=== PATIENT | female | born 1990 | race Caucasian/White ===

== ENCOUNTER 2017-09-07 18:04 | Emergency (ER) | payer OTHER, SELFPAY ==
--- NOTE | 2017-09-07 18:04 | EKG12_ITS ---
Test Reason : CP Blood Pressure : / mmHG Vent. Rate : 074 BPM Atrial Rate : 074 BPM P-R Int : 122 ms QRS Dur : 138 ms QT Int : 426 ms P-R-T Axes : 005 -26 062 degrees QTc Int : 472 ms Normal sinus rhythm Dpegx-Qhqftoncx-Hhiuo Abnormal ECG Confirmed by DOMINIK MARS, STORMY ([id number]), copy editor LORENZO PIERCE ([id number]) on 09/09/2017 10:35:52 AM Referred By: STAN Confirmed By:STORMY LEHMAN MD
[2017-09-07 18:05] VITALS: BP 154/92; PULSE 70; RESP 22; TEMP 37; O2SAT 98; BMI 50.3
--- NOTE | 2017-09-07 18:27 | EKG12_ITS ---
Test Reason : CP-REPEAT Blood Pressure : / mmHG Vent. Rate : 060 BPM Atrial Rate : 060 BPM P-R Int : 122 ms QRS Dur : 138 ms QT Int : 446 ms P-R-T Axes : 012 -27 039 degrees QTc Int : 446 ms Normal sinus rhythm Twwyi-Ytzwfsrbc-Koxfj Abnormal ECG Confirmed by DOMINIK MARS, STORMY ([id number]), art editor LORENZO PIERCE ([id number]) on 09/09/2017 10:11:59 AM Referred By: TC Confirmed By:STORMY LEHMAN MD
--- NOTE | 2017-09-07 18:27 | RAD_ITS ---
STUDY: X-RAY CHEST REASON FOR EXAM: Female, 26 years old. Chest pain. TECHNIQUE: Single AP portable view of the chest. COMPARISON: 01/09/2017. FINDINGS: The lungs are clear and expanded. There is no demonstrated pleural abnormality. Normal size heart. Normal mediastinum and olga. Normal visualized pulmonary arteries. Normal visualized aortic arch and descending thoracic aorta. Normal visualized thoracic spine. Normal visualized ribs, clavicles, and shoulders. There is no demonstrated abnormality of the visualized soft tissue structures of the upper abdomen. RAD/Chest 1 View (Portable) IMPRESSION: Normal x-ray examination of the chest. Electronically Signed: Yuriy Thoa MD at 18:54 EST , Service support ,
[2017-09-07 18:30] VITALS: O2SAT 98
[2017-09-07] MEDS: Aspirin 81 MG TAB.CHEW 324 MG PO (18:47)
[2017-09-07] MEDS: 0.9% Normal Saline 1,000 ML 150 ML IV (18:48)
[2017-09-07] MEDS: Ondansetron 4 MG/2 ML Vial IV (18:48)
[2017-09-07 19:04] LABS: Absolute Lymphocyte Count 3.04 X10^3/ul (0.83-4.51); Absolute Neutrophil Count 5.1 X10^3/uL (2.0-7.7); Basophil# 0.01 X10^3/uL; Basophil% 0.1 % (0-1); Eosinophil# 0.12 X10^3/uL; Eosinophils% 1.4 % (0-5); Hematocrit 42.2 % (37-47); Hemoglobin 13.9 g/dl (12.0-15.0); Lymphocyte # 3.04 X10^3/ul (4.0); Lymphocyte % 34.7 % (19-41); Mean Corp Hgb Conc 32.9 g/gl (32-36); Mean Corpuscular Hgb 27.9 pg (27.0-32.0); Mean Corpuscular Volume 84.7 fL (81-99); Mean Platelet Vol. 9.9 fl (6.2-12.0); Monocyte% 5.7 % (0-10); Neutrophil # 5.07 X10^3/uL (2.7-7.7); POSITIVE COUNT NO; POSITIVE DIFFERENTIAL NO; POSITIVE MORPHOLOGY NO; Platelet Count 258 K/mm3 (150-450); RBC Distribution Width CV 12.8 % (11.6-14.6); RBC Distribution Width SD 39.1 fl (35.1-43.9); Red Blood Count 4.98 M/mm3 (4.2-5.4); White Blood Count 8.8 K/mm3 (4.4-11.0)
[2017-09-07 19:14] LABS: D-Dimer Quantitative (DVT/PE) < 0.27 FEU/ug/m (0.27-0.49)
[2017-09-07 19:19] LABS: Anion Gap 8 (5-15); BUN 10 mg/dL (7-18); BUN/Creat Ratio 16.1 RATIO (10-20); Calcium,Total 8.7 mg/dL (8.5-10.1); Chloride 105 mmol/L (98-107); Creatinine, Serum 0.62 mg/dL (0.55-1.02); EST Glomerular Filtration Rate 121 mL/min (>60); Est Glom Filt Rate - Afr Amer 147 mL/min (>60); Estimated Creatinine Clearance 132.54 ml/min; Glucose 83 mg/dL (74-106); Potassium 3.4 mmol/L (3.5-5.1); Sodium Level 138 mmol/L (136-145)
[2017-09-07 19:27] LABS: Pregnancy, Serum, hCG Quali. NEGATIVE Negative (0-9 Nonpreg)
[2017-09-07 20:00] VITALS: BP 149/98; PULSE 67; RESP 18; O2SAT 98
--- NOTE | 2017-09-07 20:24 | ED.VISSUMM ---
- ER Visit Summary Date of Service: 09/07/17 Chief Complaint: Chest pain History of Present Illness: The patient is a 26 F history of Rxxfc-Qunqmhdlc-Hqvsw. She had cardiac ablation on April 01 of last year at [facility]. Patient presents with 3 hours of chest pain. She describes heaviness across her upper chest with shortness of breath. She does have strong family history for cardiac disease. Physical Examination: Vital signs are significant for blood pressure 154/92, others are all normal. Patient is obese female sitting upright in bed. She is troubled but in no acute distress. Head neck examination is unremarkable. Heart is regular rate and rhythm. Lung sounds are clear. She does have tenderness to palpation over the upper chest wall. Abdomen is soft and nontender. Lower exam examination reveals no significant calf tenderness or edema. She does appear anxious. Test Results: Chest x-ray is unremarkable. EKG is sinus at 74. 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 No acute ST changes are noted. Repeat EKG after approximate half hour is unchanged. CBC is normal. Chemistry studies are significant only for potassium of 3.4. Troponin is less than 0.02. D-dimer is less than 0.27. test is negative. Emergency Department Course and Treatment: Patient received aspirin on arrival. She also received morphine and Zofran. On repeat evaluation she is sitting upright in bed smiling. She is observed ambulating to the restroom and back without difficulty. Patient was discussed with Dr. Stoddard. Patient is already scheduled to follow-up with him next month. Treatment Plan: [] Disposition: Discharge Impression: Chest pain This note was generated with [employer] dictation software. It may contain incorrect words, spelling, and punctuation that were not noted in review of the chart prior to signing ED Disposition - Plan for ED Patient: Chief Complaint: Chest Pain Referrals: [facility] Doctor,Out of [Primary Care Provider] -
--- NOTE | 2017-09-07 20:28 | ED.DCSUM_ITS ---
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 She had cardiac ablation on April 01 of last year at [facility]. Patient presents with 3 hours of chest pain. She describes heaviness across her upper chest with shortness of breath. She does have strong family history for cardiac disease. Physical Examination: Vital signs are significant for blood pressure 154/92, others are all normal. Patient is obese female sitting upright in bed. She is troubled but in no acute distress. Head neck examination is unremarkable. Heart is regular rate and rhythm. Lung sounds are clear. She does have tenderness to palpation over the upper chest wall. Abdomen is soft and nontender. Lower exam examination reveals no significant calf tenderness or edema. She does appear anxious. Test Results: Chest x-ray is unremarkable. EKG is sinus at 74. 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 No acute ST changes are noted. Repeat EKG after approximate half hour is unchanged. CBC is normal. Chemistry studies are significant only for potassium of 3.4. Troponin is less than 0.02. D-dimer is less than 0.27. test is negative. Emergency Department Course and Treatment: Patient received aspirin on arrival. She also received morphine and Zofran. On repeat evaluation she is sitting upright in bed smiling. She is observed ambulating to the restroom and back without difficulty. Patient was discussed with Dr. Stoddard. Patient is already scheduled to follow-up with him next month. Treatment Plan: [] Disposition: Discharge Impression: Chest pain This note was generated with [employer] dictation software. It may contain incorrect words, spelling, and punctuation that were not noted in review of the chart prior to signing ED Disposition - Plan for ED Patient: Chief Complaint: Chest Pain Referrals: [facility] Doctor,Out of [Primary Care Provider] -
--- NOTE | 2017-09-07 20:28 | ED.DEP ---
ED Disposition - Plan for ED Patient: Disposition: Home or Assisted Living Chief Complaint: Chest Pain Instructions: ED Chest Pain NonCardiac Referrals: Lavell Stoddard MD [STAFF PHYSICIAN] - Keep [place] appointment
[2017-09-07 20:35] VITALS: BP 143/83; PULSE 60; RESP 17; O2SAT 97
== END 2017-09-07 20:36 | disposition home or self-care (01) ==
PROVIDERS: Emergency Provider Emergency Medicine
DX: R07.9 Chest pain, unspecified (principal); R06.00 Dyspnea, unspecified; R06.02 Shortness of breath; F32.9 Major depressive disorder, single episode, unspecified; E66.9 Obesity, unspecified; Z79.899 Other long term (current) drug therapy
CPT/HCPCS: 71045; 80048; 84484; 84703; 85025; 85379; 93005; 96361; 96374; 96375; 99285; J7030; J2405

== ENCOUNTER → 2018-06-29 11:55 | Outpatient (CLI) | payer BC, SELFPAY ==
[2018-06-29 14:18] LABS: Hematocrit 44.4 % (37-47); Hemoglobin 14.9 g/dl (12.0-15.0); Mean Corp Hgb Conc 33.6 g/gl (32-36); Mean Corpuscular Hgb 27.4 pg (27.0-32.0); Mean Corpuscular Volume 81.6 fL (81-99); Mean Platelet Vol. 10.4 fl (6.2-12.0); Platelet Count 266 K/mm3 (150-450); RBC Distribution Width CV 13.5 % (11.6-14.6); RBC Distribution Width SD 39.9 fl (35.1-43.9); Red Blood Count 5.44 M/mm3 (4.2-5.4); White Blood Count 6.3 K/mm3 (4.4-11.0)
[2018-06-29 14:22] LABS: Scan Indicated on CBC? Y/N NO
[2018-06-29 14:36] LABS: Insulin 36.5 mU/L (2.6-37.6); Progesterone Level 0.46 ng/mL (See Comment); Vitamin D,25 Hydroxy 12.6 ng/mL (29.95-100.01)
[2018-06-29 14:37] LABS: AST(SGOT) 18 U/L (15-37); Alanine Aminotransfer ALT/SGPT 28 U/L (13-56); Albumin, Serum 3.5 g/dL (3.2-5.0); Alkaline Phosphatase 88 U/L (45-117); Anion Gap 8 (5-15); BUN 17 mg/dL (7-18); Calcium,Total 8.7 mg/dL (8.5-10.1); Chloride 106 mmol/L (98-107); Creatinine, Serum 0.71 mg/dL (0.55-1.02); EST Glomerular Filtration Rate 104 mL/min (>60); Est Glom Filt Rate - Afr Amer 126 mL/min (>60); Estradiol 43.5 pg/mL; Follicle Stimulating Hormone 4.4 mIU/mL; Free T3 3.3 pg/mL (2.18-3.98); Globulin 3.6 g/dL (2.2-4.2); Glucose 132 mg/dL (74-106); Potassium 4.1 mmol/L (3.5-5.1); Protein, Total 7.1 g/dL (6.4-8.2); Sodium Level 138 mmol/L (136-145); T4 Free Direct 0.89 ng/dL (0.76-1.46); Thyroid Stim Hormone (TSH) 1.56 uIU/mL (0.358-3.74)
[2018-06-29 14:43] LABS: Hemoglobin A1c 6.2 % (4.2-6.3)
[2018-06-29 16:18] LABS: Chlamydia Trachomatis by PCR Negative (Negative); Neisserai gonorrhoeae by PCR Negative (Negative); Probe Check PASS; Sample Adequacy Control PASS; Specimen Processing Control PASS
[2018-06-30 11:06] LABS: DHEA Sulfate 288.7 ug/dL (84.8-378.0)
[2018-06-30 11:38] LABS: Sex Hormone-binding Globulin 14.4 nmol/L (24.6-122.0)
[2018-06-30 12:30] LABS: Prolactin 12.3 ng/mL
[2018-07-03 14:31] LABS: 17-Hydroxyprogesterone 66 ng/dL (.)
[2018-07-05 09:19] LABS: HPV APTIMA, High Risk Negative (Negative)
== END ==
PROVIDERS: Visit Provider Obstetrics & Gynecology
DX: Z01.419 Encounter for gynecological examination (general) (routine) without abnormal findings (principal); Z11.3 Encounter for screening for infections with a predominantly sexual mode of transmission; E28.2 Polycystic ovarian syndrome; R73.09 Other abnormal glucose; E55.9 Vitamin D deficiency, unspecified
CPT/HCPCS: 36415; 80053; 82306; 82533; 82627; 82670; 83001; 83002; 83036; 83498; 83525; 84144; 84146; 84270; 84403; 84439; 84443; 84481; 85027; 87491; 87591; 87624; 88175; 82626; G0145

== ENCOUNTER → 2018-07-11 14:35 | Outpatient (CLI) | payer BC, SELFPAY ==
--- NOTE | 2018-07-11 | CER_PTH ---
PATIENT: SYLVIA VELAZQUEZ LOC: [facility]#:[id number] AGE/SX: 34/F ROOM: RE07/11/[address]: Dr. Eva Garber MD : 1990 BED: DIS: SPEC #: [id number] RECD: 07/11/18 13:51 STATUS: SARANYA ONEALKristel #: [id number] VERITO: 07/11/18 00:[address]: Eva Anderson DEPT: SURGICAL PATHOLOGY RECD BY: Fernando Willett Tissues: A - Uterine cervix, NOS B - Endocervical Procedures: Surgery Specimen Level IV HEADER OPERATION: Colposcopy PRE-OP DIAGNOSIS: R87.610 LGSIL 2016, normal 2017, ASCUS 2018 TISSUE SUBMITTED: A - 11 o'clock, B - ECC MICROSCOPIC DIAGNOSIS A. Cervix, 11 o'clock, biopsy: Focal changes suspicious for HPV cytopathic effects. Focal acute and chronic inflammation. B. ECC: Fragments of benign endocervical mucosa with chronic inflammation, blood and mucous. Negative for dysplasia. See comment. JASON:silas 07/13/18 COMMENT B. A few of the fragments have polypoid appearance and may represent fragments of inflamed benign endocervical polyp. MICROSCOPIC DESCRIPTION Slides are reviewed. GROSS DESCRIPTION A - Received in fixative is one container labeled with the patient's name and designated 11 o'clock cervix biopsy. The specimen consists of one irregular fragment of light merrill soft tissue that measures 0.2 x 0.1 x 0.1 cm. The specimen is totally submitted in one cassette. B - Received in fixative is one container labeled with the patient's name and designated ECC. The specimen consists of multiple irregular fragments of light merrill soft tissue that in aggregate measure 1 x 0.5 x <0.1 cm. The specimen is totally submitted in one cassette for cell block preparation. / AM:silas 07/12/18 TC:5 CPT: 61872 x2
--- OUTSIDE RECORDS SUMMARY | 2018-10-13 02:39 | XMS RPT_ITS ---
:1990 Author Organization OHIP Care Team Providers Name Role Phone JERMAINE ESPINOZA Admitting Unavailable JERMAINE ESPINOZA Attending Unavailable XOCHITL VILLANUEVA III Primary Care Unavailable Eva Cisneros Attending Unavailable Eva Cisneros Referring Unavailable Lorri Ellison Attending Unavailable TRIP LANDEROS Primary Care Unavailable Eva Cisneros Attending Unavailable PROBLEMS PROBLEMS DATE TYPE CONDITION / CODE ATTENDING STATUS SOURCE 07/11/2018 Unknown R87.610 - Atypical Amelia, Active [facility] squamous cells of [facility] undetermined Hospital significance on Repository cytologic smear of cervix (ASC-US) / R87.610(ICD-10) 06/29/2018 Unknown E28.2 - Polycystic Amelia, Active [place] ovarian syndrome / [facility] E28.2(ICD-10) Hospital Repository 06/29/2018 Unknown Z68.43 - Body mass Delano-Jcarlos, Active [place] index (BMI) 50-59.9, [facility] adult / Hospital Z68.43(ICD-10) Repository 06/29/2018 Unknown E55.9 - Vitamin D Amelia Active [place] deficiency, [facility] unspecified / Hospital E55.9(ICD-10) Repository 06/29/2018 Unknown Z01.419 - Encounter Amelia Active [place] for gynecological [facility] examination (general) Hospital (routine) without Repository abnormal findings / Z01.419(ICD-10) 06/29/2018 Unknown Z11.3 - Encounter for Charity Cisneros [place] screening for [facility] infections with a Hospital predominantly sexual Repository mode of transmission / Z11.3(ICD-10) 09/15/2017 Admitting Supraventricular ALEXIS, JERMAINE G Active [facility] diagnosis tachycardia / [facility] I47.1(ICD-10) [facility] Repository PROCEDURES PROCEDURES No Procedure Records FoundRESULTS RESULTS CERVICAL Observed: 07/11/2018 Status: F Source: [place] 12:00 AM [facility] REPOSITORY Patient: SYLVIA VELAZQUEZ : 1990 (27/) Acct Num: [id number] Phys: Amelia MARS,[facility] Unit Num: [id number] Loc: LABSPEC Specimen: [id number] Received: 07/11/18 - 1351 Spec Type: CERV TISSUES 1 TISSUES: A. Uterine cervix, NOS B. Endocervical COMMENT B. A few of the fragments have polypoid appearance and may represent fragments of inflamed benign endocervical polyp. GROSS DESCRIPTION A - Received in fixative is one container labeled with the patient's name and designated 11 o'clock cervix biopsy. The specimen consists of one irregular fragment of light merrill soft tissue that measures 0.2 x 0.1 x 0.1 cm. The specimen is totally submitted in one cassette. B - Received in fixative is one container labeled with the patient's name and designated ECC. The specimen consists of multiple irregular fragments of light merrill soft tissue that in aggregate measure 1 x 0.5 x <0.1 cm. The specimen is totally submitted in one cassette for cell block preparation. / AM:silas 07/12 TC:5 CPT: 38629 x2 HEADER OPERATION: Colposcopy PRE-OP DIAGNOSIS: R87.610 LGSIL 2015, normal 2016, ASCUS 2017 TISSUE SUBMITTED: A - 11 o'clock, B - ECC MICROSCOPIC DESCRIPTION Slides are reviewed. MICROSCOPIC DIAGNOSIS A. Cervix, 11 o'clock, biopsy: Focal changes suspicious for HPV cytopathic effects. Focal acute and chronic inflammation. B. ECC: Fragments of benign endocervical mucosa with chronic inflammation, blood and mucous. Negative for dysplasia. See comment. SJ:silas 07/13/18 Signed Rickey Bishop MD 07/13/18 <signature on file> Performed By: #### PCER #### [facility] [address] [place], [place], [address] CBC-COMPLETE BLOOD CNT Collected: 06/29/2018 Status: F Source: [place] NO DIFF 11:59 AM [facility] REPOSITORY TYPE CODE TESTS RESULT OUT OF RANGE REFERENCE UNITS LAB L100.1000 4.4-11.0 K/mm3 Normal WBC 6.3 LAB L100.1200 4.2-5.4 M/mm3 High RBC 5.44 LAB L100.1300 12.0-15.0 g/dl Normal HGB 14.9 LAB L100.1400 37-47 % Normal HCT 44.4 LAB L100.1500 81-99 fL Normal MCV 81.6 LAB L100.1600 27.0-32.0 pg Normal MCH 27.4 LAB L100.1700 32-36 g/gl Normal MCHC 33.6 LAB L100.1810 11.6-14.6 % Normal RDW CV 13.5 LAB L100.1820 35.1-43.9 fl Normal RDW SD 39.9 LAB L100.1900 150-450 K/mm3 Normal PLT 266 LAB L100.2000 6.2-12.0 fl Normal MPV 10.4 Performed By: #### L100.0500 #### [facility] [address] [place], [place], [address] VITAMIN D,25 HYDROXY Collected: 06/29/2018 Status: F Source: [place] 11:59 AM [facility] REPOSITORY TYPE CODE TESTS RESULT OUT OF REFERENCE UNITS RANGE LAB L506.1000 29.95-100.01 ng/mL Low Vitamin D 12.6 25-OH Result Comment: Vitamin D 25(OH) Status Range Deficiency <20 ng/mL (50nmol/L) Insuffciency 20 - 30 ng/mL (50 - 75 nmol/L) Sufficiency 30 - 100 ng/mL (75 - 250 nmol/L) Toxicity >100 ng/mL (>250 nmol/L) Performed By: #### L506.1000, L509.3000, L509.4001, L509.6000, [id number] #### [facility] [address] [place], [address] TESTOSTERONE, SERUM TOTAL Collected: 06/29/2018 Status: F Source: [place] 11:59 AM [facility] REPOSITORY TYPE CODE TESTS RESULT OUT OF REFERENCE UNITS RANGE LAB L509.3000 ng/dL Testosterone Normal 34.00 Result Comment: NORMAL REFERENCE RANGES MALE AGE <50 123.06 - 813.86 ng/dL MALE AGE >50 89.98 - 780.10 ng/dL FEMALE PREMENOPAUSE AGE 21 - 60 9.01 - 47.94 ng/dL FEMALE POSTMENOPAUSE AGE 45 - 89 <7.00 - 45.62 ng/dL REFERENCE RANGE AND METHODOLOGY CHANGED 07/13/2017 Performed By: #### L506.1000, L509.3000, L509.4001, L509.6000, [id number] #### [facility] [address] [place], [place], [address] PROGESTERONE LEVEL Collected: 06/29/2018 Status: F Source: [place] 11:59 AM [facility] REPOSITORY TYPE CODE TESTS RESULT OUT OF REFERENCE UNITS RANGE LAB L509.4001 See Comment ng/mL Progesterone Normal 0.46 Result Comment: Progesterone Reference Table: UNITS Female: Follicular 0.15 - 1.40 ng/mL Luteal 3.34 - 25.56 ng/mL Mid-luteal 4.44 - 28.03 ng/mL Postmenopausal 0.0 - 0.73 ng/mL : 1st Trimester 11.22 - 90.00 ng/mL 2nd Trimester 25.55 - 89.40 ng/mL 3rd Trimester 48.40 -422.50 ng/mL Performed By: #### L506.1000, L509.3000, L509.4001, L509.6000, [id number] #### [facility] [address] [place], [address] CORTISOL SERUM Collected: 06/29/2018 Status: F Source: [place] 11:59 AM [facility] REPOSITORY TYPE CODE TESTS RESULT OUT OF RANGE REFERENCE UNITS LAB L509.6000 3.09-22.40 ug/dL Normal CORTISOL 8.80 Result Comment: Adult (AM) 4.30 - 22.40 ug/dL Adult (PM) 3.09 - 16.66 ug/dL Performed By: #### L506.1000, L509.3000, L509.4001, L509.6000, [id number] #### [facility] [address] [place], [address] INSULIN Collected: 06/29/2018 Status: F Source: [place] 11:59 AM [facility] REPOSITORY TYPE CODE TESTS RESULT OUT OF RANGE REFERENCE UNITS LAB [id number] 2.6-37.6 mU/L Normal Insulin 36.5 Result Comment: Please Note: INSULIN METHOD AND REFERENCE RANGE CHANGE Effective 08/04/2017. Performed By: #### L506.1000, L509.3000, L509.4001, L509.6000, [id number] #### [facility] [address] [place], [address] COMPREHENSIVE METABOLIC Collected: 06/29/2018 Status: F Source: [facility] 11:59 AM [facility] REPOSITORY Order Comment: PLEASE ADD PROLACTIN TO BLOOD FROM 06-29-G4 3 D TYPE CODE TESTS RESULT OUT OF RANGE REFERENCE UNITS LAB L501.0100 74-106 mg/dL High GLU 132 Result Comment: Fasting Glucose result greater than or equal to 126 mg/dL suggests DIABETES MELLITUS per A.D.A. criteria. Please note revised GLUCOSE reference range effective 2017. LAB L501.1000 7-18 mg/dL Normal BUN 17 LAB L501.1100 0.55-1.02 mg/dL Normal CREAT,SERUM 0.71 Result Comment: The validity of the calculated GFR AND GFRAA in patients over 70 years has not been determined. Clinical correlation is essential. LAB L501.1110 >60 mL/min Normal EST GFR 104 Result Comment: Non- GFR Calc LAB L501.1115 >60 mL/min Normal EST GFR - AA 126 Result Comment: GFR Calc LAB L501.1300 10-20 RATIO High BUN/CRE 24.0 LAB L501.1500 6.4-8.2 g/dL T Normal PROT 7.1 LAB L501.1800 3.2-5.0 g/dL Normal ALB 3.5 LAB L501.1950 2.2-4.2 g/dL Normal GLOB 3.6 LAB L501.2000 0.9-2.4 RATIO Normal A/G 1.0 LAB L501.2200 8.5-10.1 mg/dL CA Normal 8.7 LAB L501.4100 15-37 U/L Normal AST 18 LAB L501.4305 45-117 U/L Normal ALK P 88 LAB L501.4405 13-56 U/L Normal ALT 28 LAB L501.4600 0.20-1.00 mg/dL T Normal BILI 0.40 LAB L501.5300 136-145 mmol/L NA Normal 138 LAB L501.5600 3.5-5.1 mmol/L K Normal 4.1 LAB L501.5900 98-107 mmol/L CL Normal 106 LAB L501.6100 21.0-32.0 mmol/L Normal CO2 24.0 LAB L501.6200 5-15 Normal GAP 8 Performed By: #### L500.4050, L501.74183, L501.9520, L506.0400, L3100.5125, L3100.5170, L3300.1750, L3100.5420 #### [facility] [address] [place], [address] FREE T3 Collected: 06/29/2018 Status: F Source: [place] 11:59 AM [facility] REPOSITORY Order Comment: PLEASE ADD PROLACTIN TO BLOOD FROM 06-29-G4 3 D TYPE CODE TESTS RESULT OUT OF RANGE REFERENCE UNITS LAB L501.83128 2.18-3.98 pg/mL Normal FREE T3 3.3 Performed By: #### L500.4050, L501.63656, L501.9520, L506.0400, L3100.5125, L3100.5170, L3300.1750, L3100.5420 #### [facility] [address] [place], [place], [address] THYROID STIM HORMONE Collected: 06/29/2018 Status: F Source: [place] (TSH) 11:59 AM [facility] REPOSITORY Order Comment: PLEASE ADD PROLACTIN TO BLOOD FROM 06-29- THG4 3 D TYPE CODE TESTS RESULT OUT OF RANGE REFERENCE UNITS LAB L501.9520 0.358-3.74 uIU/mL Normal TSH 1.56 Performed By: #### L500.4050, L501.22972, L501.9520, L506.0400, L3100.5125, L3100.5170, L3300.1750, L3100.5420 #### [facility] [address] [place], [place], [address] T4 FREE DIRECT Collected: 06/29/2018 Status: F Source: [place] 11:59 AM [facility] REPOSITORY Order Comment: PLEASE ADD PROLACTIN TO BLOOD FROM 06-29- THG4 3 D TYPE CODE TESTS RESULT OUT OF RANGE REFERENCE UNITS LAB L506.0400 0.76-1.46 ng/dL Normal T4 FREE 0.89 DIRECT Performed By: #### L500.4050, L501.88995, L501.9520, L506.0400, L3100.5125, L3100.5170, L3300.1750, L3100.5420 #### [facility] [address] [place], [place], [address] FOLLICLE STIMULATING Collected: 06/29/2018 Status: F Source: [place] HORMONE 11:59 AM [facility] REPOSITORY Order Comment: PLEASE ADD PROLACTIN TO BLOOD FROM 06-29- THG4 3 D TYPE CODE TESTS RESULT OUT OF RANGE REFERENCE UNITS LAB L3100.5125 mIU/mL Normal FSH 4.4 Result Comment: NORMAL REFERENCE RANGES FEMALE FOLLICULAR 2.3 - 12.6 mIU/mL MID-CYCLE PEAK 5.2 - 17.5 mIU/mL LUTEAL 1.7 - 12.9 mIU/mL POST-MENOPAUSAL ON MHT 5.9 - 72.8 mIU/mL NOT ON MHT 12.7 - 132.2 mlU/mL MALE 0.7 - 10.8 mIU/mL NEW TEST METHOD AND REFERENCE RANGES DECEMBER 13, 2011 Performed By: #### L500.4050, L501.62450, L501.9520, L506.0400, L3100.5125, L3100.5170, L3300.1750, L3100.5420 #### [facility] [address] [place], [address] LUTEINIZING HORMONE Collected: 06/29/2018 Status: P Source: [place] 11:59 AM [facility] REPOSITORY Order Comment: PLEASE ADD PROLACTIN TO BLOOD FROM 06-29- 3 D TYPE CODE TESTS RESULT OUT OF RANGE REFERENCE UNITS LAB L3100.5170 mIU/mL Normal LH 6.8 Result Comment: NORMAL REFERENCE RANGES FEMALE FOLLICULAR 1.9 - 26.2 mIU/mL MID-CYCLE PEAK 22.8 - 76.1 mIU/mL LUTEAL 0.6 - 16.6 mIU/mL POST-MENOPAUSAL ON MHT 1.1 - 52.4 mIU/mL NOT ON MHT 8.6 - 61.8 mIU/mL MALE 1.2 - 10.6 mIU/mL NEW TEST METHOD AND REFERENCE RANGES DECEMBER 13, 2011 Performed By: #### L500.4050, L501.65452, L501.9520, L506.0400, L3100.5125, L3100.5170, L3300.1750, L3100.5420 #### [facility] [address] [place], [place], [address] ESTRADIOL Collected: 06/29/2018 Status: F Source: [place] 11:59 AM [facility] REPOSITORY Order Comment: PLEASE ADD PROLACTIN TO BLOOD FROM 06-29-G4 3 D TYPE CODE TESTS RESULT OUT OF RANGE REFERENCE UNITS LAB L3300.1750 pg/mL Normal ESTRADIOL 43.5 Result Comment: NORMAL REFERENCE RANGES FEMALE FOLLICULAR 21.4 - 164.8 pg/mL MID-CYCLE PEAK 49.9 - 367.2 pg/mL LUTEAL 40.2 - 259.0 pg/mL POST-MENOPAUSAL ON MHT <11.0 - 462.1 pg/mL NOT ON MHT <11.0 - 58.3 pg/mL MALE <11.0 - 52.5 pg/mL NOTE: [facility] HAS CONFIRMED THE DRUG FULVETRANT (FASLODEX) MAY CAUSE FALSELY ELEVATED ESTRADIOL RESULTS WHEN USING THIS TEST METHOD. IF PATIENT IS TAKING FULVESTRANT AN ALTERNATIVE METHOD SHOULD BE USED TO DETERMINE ESTRADIOL CONCENTRATION. Performed By: #### L500.4050, L501.82312, L501.9520, L506.0400, L3100.5125, L3100.5170, L3300.1750, L3100.5420 #### [facility] [address] [place], [place], [address] PROLACTIN Collected: 06/29/2018 Status: F Source: [place] 11:59 AM [facility] REPOSITORY Order Comment: PLEASE ADD PROLACTIN TO BLOOD FROM 06-29-G4 3 D TYPE CODE TESTS RESULT OUT OF RANGE REFERENCE UNITS LAB L3100.5420 ng/mL Normal PROLACTIN 12.3 Result Comment: NORMAL REFERENCE RANGES FEMALE NON- 2.2 - 30.3 ng/mL 8.1 - 347.6 ng/mL POST-MENOPAUSAL 0.7 - 31.5 ng/mL MALE 2.5 - 17.4 ng/mL NEW TEST METHOD AND REFERENCE RANGES DECEMBER 13, 2011 Performed By: #### L500.4050, L501.55020, L501.9520, L506.0400, L3100.5125, L3100.5170, L3300.1750, L3100.5420 #### [facility] [address] [place], [place], [address] HEMOGLOBIN A1C Collected: 06/29/2018 Status: F Source: [place] 11:59 AM [facility] REPOSITORY TYPE CODE TESTS RESULT OUT OF RANGE REFERENCE UNITS LAB L501.9985 4.2-6.3 % Normal HGB A1C 6.2 Performed By: #### L501.9985 #### [facility] [address] [place], [address] SEX HORMONE-BINDING Collected: 06/29/2018 Status: F Source: [place] GLOBULIN 11:59 AM [facility] REPOSITORY Order Comment: Has Patient had Radioactive Injection for X-ray?: N TYPE CODE TESTS RESULT OUT OF RANGE REFERENCE UNITS LAB L3100.5060 24.6-122.0 nmol/L Low SHBG 14.4 Result Comment: Performed at: [address] [id number] Records Tech: Ramana Rdz PhD, Phone: [phone] Performed By: #### L3100.5060, L3300.1500 #### [facility] (refer to report for specific site) refer to report for address and phone number DHEA SULFATE Collected: 06/29/2018 Status: F Source: [place] 11:59 AM [facility] REPOSITORY Order Comment: Has Patient had Radioactive Injection for X-ray?: N TYPE CODE TESTS RESULT OUT OF RANGE REFERENCE UNITS LAB L3300.1500 84.8-378.0 ug/dL Normal DHEA SULF 288.7 4020 Performed By: #### L3100.5060, L3300.1500 #### [facility] (refer to report for specific site) refer to report for address and phone number [phone] Collected: Status: F Source: [place] 06/29/2018 11:59 AM [facility] REPOSITORY Order Comment: Has Patient had Radioactive Injection for X-ray?: N TYPE CODE TESTS RESULT OUT OF RANGE REFERENCE UNITS LAB L3100.9000 . ng/dL Normal HYDROXPROG 17 66 Result Comment: Adult Female Follicular 15 - 70 Luteal 35 - 290 This test was developed and its performance characteristics determined by [facility]. It has not been cleared or approved by the Food and Drug Administration. Performed at: [address] [id number] Records Tech: Grant Sagastume MD, Phone: [phone] Performed By: #### L3100.9000 #### [facility] (refer to report for specific site) refer to report for address and phone number CT/NG W[facility] BY PCR Collected: 06/29/2018 Status: F Source: [place] 11:30 AM [facility] REPOSITORY TYPE CODE TESTS RESULT OUT OF RANGE REFERENCE UNITS LAB L8200.2100 Negative Normal Chlam Negative Trac PCR LAB L8200.2200 Negative Normal NG by Negative PCR Performed By: #### L8200.1999 #### [facility] [address] [place], [address] PAP IG HPV APTIMA Collected: 06/29/2018 Status: F Source: [place] 16/18,45 11:30 AM [facility] REPOSITORY Order Comment: CYTOLOGY INFORMATION: - CLINICAL INFORMATION: - DATE LMP/MENOPAUSE: SPOTTING/MIRENA LMP - COLLECTION VIAL: Thin Prep Vial - MAINTENANCE REPAIRMAN SOURCE: CERVICAL/ENDOCERVICAL - COLLECTION TECHNIQUE: BRUSH/SPATULA Specimen Comment: [id number] Specimen Comment: Source.............Cervix;Endocervix Specimen Comment: Dates / Results....MIRENA, SPOTTING Specimen Comment: Other..............Other Specimen Comment: No. of containers..01 ThinPrep Vial TYPE CODE TESTS RESULT OUT OF REFERENCE UNITS RANGE LAB L7400.0800 . High DIAGN Comment Result Comment: EPITHELIAL CELL ABNORMALITY. ATYPICAL SQUAMOUS CELLS OF UNDETERMINED SIGNIFICANCE. LAB L7400.0900 . Normal ADEQ Comment Result Comment: Satisfactory for evaluation. Endocervical and/or squamous metaplastic cells (endocervical component) are present. LAB L7400.1400 . Normal PERFORM Comment Result Comment: Murali Pierce, Keyboarding Clerk (ASCP) LAB L7400.1700 . Normal SIGN Comment Result Comment: Keren Miramontes MD, Pathologist LAB L7400.1720 . Normal Path prov. Comment ICD9 Result Comment: R87.610 LAB L7400.2575 . Normal TEST METHOD Comment Result Comment: This liquid based ThinPrep(R) pap test was screened with the use of an image guided system. LAB L7400.2600 . Normal . COMM LAB L7400.2700 . Normal PAPSMR Comment Result Comment: The Pap smear is a screening test designed to aid in the detection of premalignant and malignant conditions of the uterine cervix. It is not a diagnostic procedure and should not be used as the sole means of detecting cervical cancer. Both false-positive and false-negative reports do occur. LAB L7400.2760 Negative Normal HPV APTIMA, Negative HR Result Comment: This test detects fourteen high-risk HPV types (16/18/31/33/35/39/45/ 51/52/56/58/59/66/68) without differentiation. Performed at: WB - [facility] [address] [id number] Records Tech: Hoda Paul MD, Phone: [phone] Performed at: =G - [facility] [address] [id number] Records Tech: Hoda Paul MD, Phone: [phone] Performed By: #### L7400.0280 #### [facility] (refer to report for specific site) refer to report for address and phone number EP PROCEDURE - Observed: 10/17/2017 Status: F Source: [facility] EPS/ABLATION/DEVICE 1:49 PM [facility] REPOSITORY 26 yo female with hx of posteroseptal AP s/p RFA in 03/2017 who was referred for EPS+/- ablation due to recurrence of pre-excitation. - Successful ablation of right postero-septal AP - No pre-excitation in the waiting time with and without Adenosine. No sustained SVT with and without Isuprel. - Post ablation, normal SA, AV node and infra-sky conduction. - VA conduction post ablation present and decremental. Recs: Sheath removal per protocol. DC tonight F/u EKG 26 yo female with hx of posteroseptal AP s/p RFA in 03/2017 who was referred for EPS+/- ablation due to recurrence of pre-excitation. - Successful ablation of right postero-septal AP - No pre-excitation in the waiting time with and without Adenosine. - Post ablation, normal SA, AV node and infra-sky conduction. - VA conduction post ablation present and decremental. Recs: Sheath removal per protocol. DC tonight F/u EKG *ACT* LOW RANGE, Collected: 10/14/2017 Status: F Source: [facility] POC 2:40 PM [facility] REPOSITORY TYPE CODE TESTS RESULT OUT OF REFERENCE UNITS RANGE LAB ACTLR 89-169 sec *ACT* LOW 145 RANGE, POC CBC,PLATELET,DIFFERENTIAL - CCL Collected: Status: F Source: [facility] 10/14/2017 8:14 AM [facility] REPOSITORY TYPE CODE TESTS RESULT OUT OF REFERENCE UNITS RANGE LAB WBC 3.98-10.04 K/uL WBC Count 8.25 LAB RBC 3.93-5.22 M/uL RBC Count 5.06 LAB HGB 11.2-15.7 g/dL Hemoglobin 14.3 LAB HCT 34.1-44.9 % Hematocrit 42.8 LAB MCV 79.4-94.8 fL Mean Cell 84.6 Volume LAB MCH 25.6-32.2 pg Mean Cell 28.3 Hgb LAB MCHC 32.2-35.5 g/dL Mean Cell 33.4 Hgb Conc LAB RDW 11.7-14.4 % RBC 12.6 Distribution LAB PLT 182-369 K/uL Platelet 265 Count LAB MPV 9.4-12.3 fL Mean 9.6 Platelet Volume LAB NRBC 0.0-0.2 /100 WBC NUCLEATED 0.0 RBC LAB DTYPE Electronic DIFFERENTIAL TYPE Differential LAB IGRE % IMMATURE 0.1 GRANS % LAB SEGS % NEUTROPHIL 53.3 SEGMENTED LAB LYM % LYMPHOCYTE 38.1 % LAB MON % MONOCYTE % 6.4 LAB EOS % EOSINOPHIL 1.6 % LAB BASO % BASOPHIL % 0.5 LAB IGABS 0.00-0.03 K/uL IMMATURE 0.01 GRANS ABSOLUTE LAB SBANS 1.56-6.13 K/uL SEGS + 4.40 Bands,Absolute LAB ALYM 1.18-3.74 K/uL Abs Lymph 3.14 LAB AMONO 0.24-0.86 K/uL Abs [place] 0.53 LAB AEOS 0.04-0.36 K/uL Abs Eos 0.13 LAB ABASO 0.01-0.08 K/uL Abs Baso 0.04 Performed By: #### KATJA, PAVAN, CHM7 #### [facility] [address] [place] [address] [address] [place] [address] PT*PTT Collected: 10/14/2017 Status: F Source: [facility] 8:14 AM [facility] REPOSITORY TYPE CODE TESTS RESULT OUT OF RANGE REFERENCE UNITS LAB PT 11.9-14.2 sec PT 13.1 LAB INR 0.9-1.1 INR 1.0 LAB PTT 24.0-34.3 sec PTT 27.9 Performed By: #### KATJA, PAVAN, CHM7 #### [facility] [address] [place], [place] [address] CHEM 7 Collected: 10/14/2017 Status: F Source: [facility] 8:14 AM [facility] REPOSITORY TYPE CODE TESTS RESULT OUT OF REFERENCE UNITS RANGE LAB BUN 7-22 mg/dL BUN 12 LAB NA 133-143 mmol/L Sodium 137 LAB K 3.5-5.0 mmol/L Potassium 3.8 LAB CL 98-108 mmol/L Chloride 103 LAB CO2 22-30 mmol/L Carbon Dioxide 26 LAB GLUC 70-99 mg/dL Glucose High 120 LAB CREA 0.50-1.20 mg/dL Creatinine 0.65 LAB GAP 7-17 mmol/L Anion Gap 12 LAB BC BUN/CREA Ratio 18 LAB OSMC 278-305 mOsm/kg Osmolality 288 (Calc) LAB GFR >60 mL/min/1.73 sqM Est GFR,non >60 [place] LAB GFRA >60 mL/min/1.73 sqM Est GFR, >60 Performed By: #### CBCDFC, PTPTT, CHM7 #### [facility] [address] [place] [id number] [place] [address] [place] [address] 12 LEAD ELECTROCARDIOGRAM Observed: 09/09/2017 Status: F Source: [place] 10:36 AM [facility] REPOSITORY [facility] Cardiovascular Services [address] [place] [address] 12 Lead EKG 09/07/17 1804 MR#: [id number] Acct: [id number] Name: SYLVIA VELAZQUEZ Rep #: [id number] : 1990 26 From: Ravi Lehman MD Attending Dr: Status: DEP ER Ordering Dr: Farshad Chandler MD Date: 09/07/17 Location: ED Sex: F C Admitted: Test Reason : CP Blood Pressure : / mmHG Vent. Rate : 074 BPM Atrial Rate : 074 BPM P-R Int : 122 ms QRS Dur : 138 ms QT Int : 426 ms P-R-T Axes : 005 -26 062 degrees QTc Int : 472 ms Normal sinus rhythm Mvtcg-Hlqaiwxzb-Duoxm Abnormal ECG Confirmed by DOMINIK MARS, RAVI ([id number]), food editor LORENZO PIERCE ([id number]) on 09/09/2017 10:35:52 AM Referred By: STAN Confirmed By:RAVI LEHMAN MD 09/09/17 1035 Date Ravi Lehman MD CC: OUT OF TOWN DOCTOR; Farshad Chandler MD Signed 12 LEAD ELECTROCARDIOGRAM Observed: 09/09/2017 Status: F Source: [place] 10:12 AM [facility] Cardiovascular Services [address] [place] [address] 12 Lead EKG 09/07/171837 MR#: [id number] Acct: [id number] Name: SYLVIA VELAZQUEZ Rep #: [id number] : 1990 26 From: Ravi Lehman MD Attending Dr: Status: DEP ER Ordering Dr: Lorri Ellison MD Date: 09/07/17 Location: ED Sex: F C Admitted: Test Reason : CP-REPEAT Blood Pressure : / mmHG Vent. Rate : 060 BPM Atrial Rate : 060 BPM P-R Int : 122 ms QRS Dur : 138 ms QT Int : 446 ms P-R-T Axes : 012 -27 039 degrees QTc Int : 446 ms Normal sinus rhythm Rhxpg-Ppxklpvre-Scdsg Abnormal ECG Confirmed by DOMINIK MARS, RAVI ([id number]), food editor LORENZO PIERCE ([id number]) on 09/09/2017 10:11:59 AM Referred By: TC Confirmed By:RAVI LEHMAN MD 09/09/17 1012 Date Ravi Lehman MD CC: Lorri Ellison MD; OUT OF TOWN DOCTOR Signed EMERGENCY DEPARTMENT Observed: 09/07/2017 Status: F Source: [facility] SUMMARY 10:55 PM [facility] Medical Records Department [address] [place] [address] Emergency Department Summary 09/07/172023 MR#: [id number] Acct: [id number] Name: SYLVIA VELAZQUEZ Rep #: [id number] : 1990 26 From: Lorri Ellison MD [facility] Status: DEP ER - ER Visit Summary Date of Service: 09/07/17 Chief Complaint: Chest pain History of Present Illness: The patient is a 26 F history of Aaewj-Glutqopet-Rggbu. She had cardiac ablation on April 01 of last year at [facility]. Patient presents with 3 hours of chest pain. She describes heaviness across her upper chest with shortness of breath. She does have strong family history for cardiac disease. Physical Examination: Vital signs are significant for blood pressure 154/92, others are all normal. Patient is obese female sitting upright in bed. She is troubled but in no acute distress. Head neck examination is unremarkable. Heart is regular rate and rhythm. Lung sounds are clear. She does have tenderness to palpation over the upper chest wall. Abdomen is soft and nontender. Lower exam examination reveals no significant calf tenderness or edema. She does appear anxious. Test Results: Chest x-ray is unremarkable. EKG is sinus at 74. 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 No acute ST changes are noted. Repeat EKG after approximate half hour is unchanged. CBC is normal. Chemistry studies are significant only for potassium of 3.4. Troponin is less than 0.02. D-dimer is less than 0.27. test is negative. Emergency Department Course and Treatment: Patient received aspirin on arrival. She also received morphine and Zofran. On repeat evaluation she is sitting upright in bed smiling. She is observed ambulating to the restroom and back without difficulty. Patient was discussed with Dr. Stoddard. Patient is already scheduled to follow-up with him next month. Treatment Plan: [] Disposition: Discharge Impression: Chest pain This note was generated with [employer] dictation software. It may contain incorrect words, spelling, and punctuation that were not noted in review of the chart prior to signing ED Disposition - Plan for ED Patient: Chief Complaint: Chest Pain Referrals: [facility] Doctor,Out of [Primary Care Provider] - What to do if you have Problems For any increased pain, shortness of breath, bleeding, nausea or vomiting, chest pain, or any unexpected problems, contact your Primary Care Provider. Call [facility] ([phone]) or report to the closest Emergency Room. Call 911 if necessary. 09/07/172253 <Electronically signed by Lorri Ellison MD> Date Lorri Ellison MD Cosigner Signature (If Indicated): Date CC: OUT OF TOWN DOCTOR DISCHARGE INSTRUCTION Observed: 09/07/2017 Status: F Source: [facility] 8:29 PM [facility] REPOSITORY [facility] Medical Records Department [address] [place] [address] Discharge Instruction 09/07/172027 MR#: [id number] Acct: [id number] Name: SYLVIA VELAZQUEZ Rep #: [id number] : 1990 26 From: Lorri Ellison MD PCP: OUT OF TOWN DOCTOR Status: REG ER ED Disposition - Plan for ED Patient: Disposition: Home or Assisted Living Chief Complaint: Chest Pain Instructions: ED Chest Pain NonCardiac Referrals: Lavell Stoddard MD [STAFF PHYSICIAN] - Keep [place] appointment What to do if you have Problems For any increased pain, shortness of breath, bleeding, nausea or vomiting, chest pain, or any unexpected problems, contact your Primary Care Provider. Call [facility] ([phone]) or report to the closest Emergency Room. Call 911 if necessary. 09/07/172028 <Electronically signed by Lorri Ellison MD> Date Lorri Ellison MD Cosigner Signature (If Indicated): Date CC: OUT OF TOWN DOCTOR CHEST 1 VIEW Observed: 09/07/2017 Status: F Source: [facility] (PORTABLE) 6:28 PM [facility] REPOSITORY [facility] [place] [place] [address] Chest 1 View (Portable) MR#: [id number] Acct: [id number] Name: SYLVIA VELAZQUEZ Rep #: [id number] : 1990 F 26 From: Yuriy Thao MD PCP: XOCHITL VILLANUEVA Status: PRE ER Study: Chest 1 View (Portable) Date of Exam: 09/07/17 Exam# [id number] Ordering Dr: Lorri Ellison MD STUDY: X-RAY CHEST REASON FOR EXAM: Female, 26 years old. Chest pain. TECHNIQUE: Single AP portable view of the chest. COMPARISON: 01/09/2017. FINDINGS: The lungs are clear and expanded. There is no demonstrated pleural abnormality. Normal size heart. Normal mediastinum and olga. Normal visualized pulmonary arteries. Normal visualized aortic arch and descending thoracic aorta. Normal visualized thoracic spine. Normal visualized ribs, clavicles, and shoulders. There is no demonstrated abnormality of the visualized soft tissue structures of the upper abdomen. RAD/Chest 1 View (Portable) IMPRESSION: Normal x-ray examination of the chest. Electronically Signed: Yuriy Thao MD at 18:54 EST , Service support , CC: XOCHITL VILLANUEVA; Lorri Ellison MD Machine Filler Shredder: Signed CBC W/DIFF, AUTOMATED Collected: 09/07/2017 Status: F Source: [place] 6:09 PM [facility] REPOSITORY TYPE CODE TESTS RESULT OUT OF RANGE REFERENCE UNITS LAB L100.1000 4.4-11.0 K/mm3 Normal WBC 8.8 LAB L100.1200 4.2-5.4 M/mm3 Normal RBC 4.98 LAB L100.1300 12.0-15.0 g/dl Normal HGB 13.9 LAB L100.1400 37-47 % Normal HCT 42.2 LAB L100.1500 81-99 fL Normal MCV 84.7 LAB L100.1600 27.0-32.0 pg Normal MCH 27.9 LAB L100.1700 32-36 g/gl Normal MCHC 32.9 LAB L100.1810 11.6-14.6 % Normal RDW CV 12.8 LAB L100.1820 35.1-43.9 fl Normal RDW SD 39.1 LAB L100.1900 150-450 K/mm3 Normal PLT 258 LAB L100.2000 6.2-12.0 fl Normal MPV 9.9 LAB L100.2100 47-70 % Normal NEUT% 58.0 LAB L100.2200 19-41 % Normal LY% 34.7 LAB L100.2300 0-10 % Normal MONO% 5.7 LAB L100.2400 0-5 % Normal EO% 1.4 LAB L100.2500 0-1 % Normal BASO% 0.1 LAB L100.2550 0.0-0.9 % Normal IM GRAN % 0.100 Result Comment: IG% - Immature Granulocytes (promyelocytes, myelocytes and metamyelocytes) > 1% indicates that a LEFT SHIFT is Present. LAB L100.2620 2.0-7.7 X10 3/uL Normal Absolute Neut 5.1 LAB L100.2720 0.83-4.51 X10 3/ul Normal Absolute Lymph 3.04 Performed By: #### L100.0100 #### [facility] [address] [facility] [address] [place], [place], [address] D-DIMER QUANTITATIVE Collected: 09/07/2017 Status: F Source: [place] (DVT/PE) 6:09 PM [facility] REPOSITORY TYPE CODE TESTS RESULT OUT OF RANGE REFERENCE UNITS LAB L300.8000 0.27-0.49 FEU/ug/m Low D-DIMER < 0.27 QUANT Result Comment: NORMAL D-Dimer level (<0.50) indicates no DVT or PE. Performed By: #### L300.8000 #### [facility] [address] [place], [address] BASIC METABOLIC Collected: 09/07/2017 Status: F Source: [place] PROFILE ([facility]) 6:09 PM [facility] REPOSITORY Order Comment: 'TROP' Serial specimen #1, #2, #3, or #4: 1 TYPE CODE TESTS RESULT OUT OF RANGE REFERENCE UNITS LAB L501.0100 74-106 mg/dL Normal GLU 83 Result Comment: Please note revised GLUCOSE reference range effective 2017. LAB L501.1000 7-18 mg/dL Normal BUN 10 LAB L501.1100 0.55-1.02 mg/dL Normal CREAT,SERUM 0.62 Result Comment: The validity of the calculated GFR AND GFRAA in patients over 70 years has not been determined. Clinical correlation is essential. LAB L501.1110 >60 mL/min Normal EST GFR 121 Result Comment: Non- GFR Calc LAB L501.1115 >60 mL/min Normal EST GFR - AA 147 Result Comment: GFR Calc LAB L501.1255 ml/min Normal Estimated CRCL 132.54 LAB L501.1300 10-20 RATIO BUN/CRE Normal 16.1 LAB L501.2200 8.5-10 mg/dL .1 CA Normal 8.7 LAB L501.5300 136-14 mmol/L 5 NA Normal 138 LAB L501.5600 3.5-5. mmol/L Low 1 K 3.4 LAB L501.5900 98-107 mmol/L CL Normal 105 LAB L501.6100 21.0-3 mmol/L 2.0 CO2 Normal 25.0 LAB L501.6200 5-15 GAP Normal 8 Performed By: #### L500.2500, L501.4010 #### [facility] [address] [place], [address] TROPONIN-I Collected: 09/07/2017 Status: F Source: [place] 6:09 PM [facility] REPOSITORY Order Comment: 'TROP' Serial specimen #1, #2, #3, or #4: 1 TYPE CODE TESTS RESULT OUT OF RANGE REFERENCE UNITS LAB L501.4010 <0.06 ng/mL Normal < 0.02 TROPONIN-I Result Comment: TROPONIN-I EXPECTED VALUES <0.05 NEGATIVE 0.06 - 0.59 AT RISK OF UT > OR = 0.60 SUGGEST UT Performed By: #### L500.2500, L501.4010 #### [facility] [address] [place], [address] ,SERUM,HCG QUALI. Collected: Status: F Source: [place] 09/07/2017 6:09 PM [facility] REPOSITORY TYPE CODE TESTS RESULT OUT OF REFERENCE UNITS RANGE LAB L700.6700 =>Qualitative mIU/mL Normal HCG Qual < 1 triggr LAB L700.7000 0-9 Nonpreg Negative Normal HCGSQUAL NEGATIVE Performed By: #### L700.6800 #### [facility] [address] [place], [address] ALLERGIES ALLERGIES DATE TYPE / CODE NAME / CODE REACTION SEVERITY SOURCE 05/19/2017 Drug No Known Unknown [facility] Allergy/4160 Allergies/F00 Hospital [address]80(SNOMED [id number](RXNOR Repository CT) M) ENCOUNTERS ENCOUNTERS ADMIT/DISCHARGE ACCOUNT NUMBER ADMITTING ENCOUNTER LOCATION SOURCE CLASS 07/11/2018 [id number] Ambulatory [facility] ding:LABSPEC Repository 06/29/2018 [id number] Ambulatory [facility] ding:WOBLAB Repository 10/14/2017/10/15/19 [id number] JERMAINE ESPINOZA Ambulatory Building:[address] RSSRoom: [facility] Repository 09/07/2017/09/07/19 [id number] Emergency [address] ding:ED Repository PAYERS PAYERS ENCOUNTER GUARANTOR PAYER SUBSCRIBER SOURCE 07/11/2018 SYLVIA [id number] Primary SYLVIA PERRYDOB: Christos ABBY LNAPT Insurance:ANTHEMPolic [id number] Number: [facility] [id number]: (100) [id number] Repository [phone] (HP) [place] Date:[id number] [address]MV: 07/11/2018 Secondary NOT GIVENUNK [place] Insurance:SELF PAY [facility]: Effective Repository Date:2018-07-11 06/29/2018 SYLVIA VALIENTERY1022 Primary SYLVIA PERRYDOB: Christos ABBY LNAPT Insurance:ANTHEMPolic [id number] Number: [facility] [id number]: (559) [id number] Repository [phone] () [place] Date:4571-40-36ZL [id number] [place] [address]QA: 06/29/2018 Secondary NOT GIVENUNK [place] Insurance:SELF PAY [facility] Number: Effective Repository Date:2018-06-29 09/07/2017 Sylvia Valientery1022 Primary Sylvia PerryDOB: [place] [address] Insurance:[place] [id number] CARDPoly Number: [facility] [id number]: [phone] [id number] Repository [phone] () Date:2146-27-52DZ [address], [place] [address]PA: 09/07/2017 Secondary NOT GIVENUNK Christos Insurance:SELF PAY [facility] Number: Effective Repository Date:2017-09-07
== END ==
LOC: LABSPEC 14:38
PROVIDERS: Referring Provider Obstetrics & Gynecology; Visit Provider Obstetrics & Gynecology
DX: R87.610 Atypical squamous cells of undetermined significance on cytologic smear of cervix (ASC-US) (principal)
CPT/HCPCS: 88305

== ENCOUNTER 2019-05-27 20:18 | Emergency (ER) | payer BC, SELFPAY ==
[2019-05-27 20:18] VITALS: BP 158/85; PULSE 72; RESP 16; TEMP 36.6; O2SAT 98; BMI 50.1
--- NOTE | 2019-05-27 20:43 | RAD_ITS ---
STUDY: X-RAY - LEFT ANKLE REASON FOR EXAM: Female, 28 years old. Ankle pain TECHNIQUE: 3 view(s) of the ankle. COMPARISON: None. FINDINGS: Normal visualized distal tibia and fibula. Normal medial and lateral malleoli. Normal tibiotalar articulation and ankle mortise. Normal visualized talus and calcaneus. The visualized subtalar, talonavicular, calcaneocuboid and tarsal articulations are normal. The soft tissue structures are unremarkable. RAD/Ankle min 3 Views IMPRESSION: Normal x-ray examination of the ankle. Electronically Signed: Alvaro Flynn DO at 21:37 EST Tel , Service support ,
--- NOTE | 2019-05-27 20:43 | RAD_ITS ---
STUDY: X-RAY - LEFT KNEE REASON FOR EXAM: Female, 28 years old. Status post fall TECHNIQUE: 4 view(s) of the knee. COMPARISON: None. FINDINGS: Normal visualized distal femur. Normal visualized proximal tibia and fibula. Normal proximal tibiofibular articulation. Normal medial femorotibial compartment. Normal lateral femorotibial compartment. Normal patellofemoral articulation. The soft tissue structures are unremarkable. RAD/Knee 4 or More Views IMPRESSION: Normal x-ray examination of the knee. Electronically Signed: Alvaro Flynn DO at 21:38 EST Tel , Service support ,
--- NOTE | 2019-05-27 20:47 | ED.DCSUM_ITS ---
History of Present Illness Chief Complaint: Lower Extremity Injury Detail of Chief Complaint: Left knee and ankle pain Informant: Patient Onset: Today Current Severity: Mild Maximum Severity: Moderate Worsened by: Movement and ambulation Narrative: Patient presents after a fall. This morning she was coming down her stairs, slipped, and fell down approximately 5 steps. She states her left leg was twisted underneath her. She has pain at the left knee and ankle, worse with weightbearing and movement. She denies pain at her hip. She is able to weight- bear, but states that she is limping. Past Medical History - Allergies and Home Meds Allergies/Adverse Reactions: Allergies No Known Allergies Allergy (Verified 05/19/17 07:54) Primary Care Physician: Lucy Baker MD [Primary Care Provider] - Prior records reviewed: Yes Past Medical History: - - Reviewed Smoking Status: Never smoker Review of Systems General: Denies: Chills, Fever Eyes: Denies: Visual changes - bilaterally Cardiovascular: Denies: Chest pain Respiratory: Denies: Dyspnea, Cough Gastrointestinal: Denies: Abdominal pain Musculoskeletal: Reports: Extremity Pain. Denies: Back pain Skin: Denies: Wounds Neurological: Denies: Headache Hematologic: Denies: Easy bruising Allergy: Denies: Uticaria Physical Exam Vital Signs/Narrative: Vital Signs Temp Pulse Resp BP Pulse Ox 05/27/19 20:18 97.8 F 72 16 158/85 H 98 Inital Vital Signs reviewed: Yes General: Well nourished, Well developed Head: Normocephalic ENT: Moist mucous membranes Cardiovascular: Regular rate, Regular rhythm Respiratory: No distress, CTA bilaterally Abdomen: Soft, Nontender Extremities: - - Patient has reproducible tenderness to the left knee, worse along the medial joint line. Ligaments are stable and tight on testing. She is a few superficial abrasions over the medial anterior left ankle. Mild bony te nderness along the medial ankle. Overall good range of motion. Strong distal pulses are noted with normal cap refill. Neurological: Alert, Oriented x3, Normal Strength, Normal Sensation Psychological: Normal affect Diagnostic/Tx/Re-eval Impressions Ankle X-Ray 05/27/19 20:43 IMPRESSION: Normal x-ray examination of the ankle. Electronically Signed: Alvaro Flynn DO at 21:37 EST Tel , Service support , Knee X-Ray 05/27/19 20:43 IMPRESSION: Normal x-ray examination of the knee. Electronically Signed: Alvaro Flynn DO at 21:38 EST Tel , Service support , 05/27/19 20:43 Ankle min 3 Views [RAD] Stat Knee 4 or More Views [RAD] Stat - Medical Decision Making She declined anything for pain while here. X-ray results are discussed with her. I advised her that while x-rays are unremarkable, we cannot evaluate ligaments, tendons, etc. She will be given an Chase wrap for her left knee and an air stirrup splint on her ankle. She will be given crutches and may weight- bear as tolerated. She will be given naproxen for pain. If symptoms are not improving she is to follow-up with orthopedics and she will be referred to Dr. Burden, on-call for no doc orthopedics. ED Disposition - Plan for ED Patient: Disposition: Home or Assisted Living Diagnosis: Left knee sprain, Left ankle sprain Instructions: Knee Sprain, Sprain, Ankle, with X-Ray Prescriptions: Naproxen [Naprosyn] 500 mg PO BID PRN PRN #20 tablet PRN Reason: Pain Score 1-10/10 Referrals: Ko Burden MD [STAFF PHYSICIAN] - 1 Week if not improving
[2019-05-27 22:01] VITALS: BP 158/85; PULSE 72; RESP 15; O2SAT 97
== END 2019-05-27 22:03 | disposition home or self-care (01) ==
PROVIDERS: Emergency Provider Emergency Medicine; Family Provider Family Medicine; PCP Family Medicine
DX: S93.402A Sprain of unspecified ligament of left ankle, initial encounter (principal); S83.92XA Sprain of unspecified site of left knee, initial encounter; W10.9XXA Fall (on) (from) unspecified stairs and steps, initial encounter; Y93.9 Activity, unspecified; Y92.9 Unspecified place or not applicable; Y99.9 Unspecified external cause status
CPT/HCPCS: 73564; 73610; 99284

== ENCOUNTER 2019-07-05 15:08 | Emergency (ER) | payer BC, SELFPAY ==
[2019-07-05 15:09] VITALS: BP 153/95; PULSE 74; RESP 16; TEMP 36.4; O2SAT 98; BMI 53.2
--- NOTE | 2019-07-05 15:23 | ED.VISSUMM ---
- ER Visit Summary Date of Service: 07/05/19 Chief Complaint: Suicidal ideation History of Present Illness: The patient is a 28 F presenting with suicidal ideation. Patient states that she has been depressed and having trouble for the past several days. She states that she recently found out that one of her friends committed suicide this week. She states the anniversary of another friend's suicide is also coming up soon. She states her friend who committed suicide 4 years ago jumped off a bridge. She has considered doing the same. She has a history of cutting for coping mechanism but has also thought of cutting to kill herself. She has history of previous suicide attempt by cutting. Physical Examination: Vitals are stable. Patient is afebrile. Alert no acute distress. HEENT exam is unremarkable. Neck is supple. Lungs are clear and equal bilaterally. Heart is regular rate and rhythm. Extremities are unremarkable. Skin is warm and dry. No focal neurologic deficit. Depressed affect, suicidal ideation Remainder of exam is unremarkable. Emergency Department Course and Treatment: CBC, chemistries unremarkable. hCG negative. Alcohol negative. Tox positive for cannabinoids. Discussed with the counseling center for evaluation. Disposition: Per counseling center Impression: Suicidal ideation This note was generated with [employer] dictation software. It may contain incorrect words, spelling, and punctuation that were not noted in review of the chart prior to signing ED Disposition - Plan for ED Patient: Referrals: Lucy Baker MD [Primary Care Provider] -
--- NOTE | 2019-07-05 15:25 | CM.ED ---
SOCIAL WORK UPDATED BY NURSING, CRISIS SENT PATIENT TO ED. CALL TO CRISIS, SPOKE WITH ULISSES. PER ULISSES, PATIENT IS FROM [facility]. COUNSELOR FROM [facility] CALLED AND UPDATED CRISIS ON PATIENT AND REQUESTED ASSESSMENT. ULISESS REPORTS WILL BE IN TO ASSESS PATIENT ONCE MEDICALLY CLEARED. UPDATED DR. ANDERSON. PLAN: CRISIS TO ASSESS ONCE MEDICALLY CLEARED. Emilie CHEUNG, CONTRACTOR FIELD HAULING, PREPARATION SUPERVISOR CANNING.
[2019-07-05 16:04] LABS: Amphetamine Urine VISTA NEGATIVE (<1000 ng/mL); Barbiturate Urine VISTA NEGATIVE (< 200 ng/mL); Benzodiazepine Urine VISTA NEGATIVE (< 200 ng/mL); Cocaine Urine VISTA NEGATIVE (< 300 ng/mL); Ecstacy Urine VISTA NEGATIVE (< 500 ng/mL); Methadone Urine VISTA NEGATIVE (< 300 ng/mL); PCP Urine VISTA NEGATIVE (< 25 ng/mL); THC Urine VISTA POSITIVE (< 50 ng/mL); Vista UDS pH Range 6
[2019-07-05 16:17] LABS: Absolute Lymphocyte Count 3.57 X10^3/uL (0.83-4.51); Absolute Neutrophil Count 4.8 X10^3/uL (2.0-7.7); Basophil# 0.04 X10^3/uL; Basophil% 0.4 % (0-1); Eosinophil# 0.29 X10^3/uL; Eosinophils% 3.2 % (0-5); Hematocrit 43.3 % (37-47); Hemoglobin 14.4 g/dL (12.0-15.0); Lymphocyte # 3.57 X10^3/ul (4.0); Mean Corp Hgb Conc 33.3 g/dL (32-36); Mean Corpuscular Hgb 27.7 pg (27.0-32.0); Mean Corpuscular Volume 83.4 fL (81-99); Mean Platelet Vol. 9.7 fl (6.2-12.0); Monocyte# 0.47 X10^3/uL; Monocyte% 5.1 % (0-10); NRBC Flagged by Analyzer 0 % (0-5); Neutrophil # 4.75 X10^3/uL (2.7-7.7); Platelet Count 278 K/mm3 (150-450); RBC Distribution Width SD 36.2 fl (35.1-43.9); Red Blood Count 5.19 M/mm3 (4.2-5.4); White Blood Count 9.2 K/mm3 (4.4-11.0)
[2019-07-05 16:27] LABS: Internal QC Validated? YES +Cl - CLEAR BKGD; Pregnancy, Serum, hCG Quali. NEGATIVE Negative
[2019-07-05 16:28] LABS: Alcohol, Blood (Medical)-Serum < 3.0 mg/dL
[2019-07-05 16:29] LABS: Anion Gap 5 (5-15); BUN 13 mg/dL (7-18); BUN/Creat Ratio 20.3 RATIO (10-20); Calcium,Total 9.1 mg/dL (8.5-10.1); Chloride 105 mmol/L (98-107); Creatinine, Serum 0.64 mg/dL (0.55-1.02); EST Glomerular Filtration Rate 116 mL/min (>60); Est Glom Filt Rate - Afr Amer 140 mL/min (>60); Estimated Creatinine Clearance 126.13 ml/min; Glucose 136 mg/dL (74-106); Sodium Level 137 mmol/L (136-145)
--- NOTE | 2019-07-05 16:35 | CM.ED ---
SOCIAL WORK PATIENT MEDICALLY CLEARED. CRISIS CALLED, SPOKE WITH ULISSES. ULISSES REPORTS WILL BE SENDING SOMEONE OVER TO COMPLETE ASSESSMENT. Emilie CHEUNG, SILK TOP HAT BODY MAKER, INDUSTRIAL TECH INSTRUCTOR.
--- NOTE | 2019-07-05 17:58 | NURSING ---
CRISIS HERE TO SEE PATIENT
--- NOTE | 2019-07-05 19:40 | CM.ED ---
SOCIAL WORK UPDATED BY CRISIS, PLAN IS FOR PLACEMENT REFERRAL FAXED TO [facility], AWAITING ACCEPTANCE. Emilie CHEUNG, DIRT BIKE RACER, SPORT INTERN.
--- NOTE | 2019-07-05 20:17 | CM.ED ---
SOCIAL WORK UPDATED BY [facility] CALLED AND REPORTED PATIENT'S INSURANCE IS INACTIVE. PATIENT UPDATED AND REQUEST TO MAKE PHONE CALL TO EMPLOYER. [facility] REPORTS PATIENT WILL BE REFERRAL TO [facility] IF NO INSURANCE COVERAGE. STAFF UPDATED. Emilie CHEUNG, DOG RACES MANAGER, ONLINE TRADER.
[2019-07-05 21:00] VITALS: BP 155/90; PULSE 82; RESP 18; O2SAT 94
[2019-07-05] MEDS: Acetaminophen 500 MG Tablet 1000 MG PO (21:36)
[2019-07-05 23:16] VITALS: RESP 18
[2019-07-06] VITALS (8 sets, daily range): BP systolic 132–142; BP diastolic 64–85; PULSE 74–76; RESP 14–18; O2SAT 97
[2019-07-06] MEDS: DiphenhydrAMINE 25 MG Capsule PO (00:01)
[2019-07-06] MEDS: Citalopram 40 MG TABLET PO (00:01)
== END 2019-07-06 11:38 ==
PROVIDERS: Emergency Provider Emergency Medicine; Family Provider Family Medicine; PCP Family Medicine
DX: F32.9 Major depressive disorder, single episode, unspecified (principal); R45.851 Suicidal ideations; Z79.899 Other long term (current) drug therapy; Z91.5 Personal history of self-harm
CPT/HCPCS: 36415; 80048; 80307; 80320; 84703; 85025; 99284; G0480

== ENCOUNTER 2019-07-13 09:00 | Outpatient (RCR) | payer BC, SELFPAY ==
--- NOTE | 2019-07-13 09:00 | BH.SGPN.GN ---
Behaviors/Verbalizations/Mental Status: [] Eye contact is good. Motor activity is appropriate. Appearance is casual. Speech is Appropriate. Mood is depressed. Affect is flat. Thoughts are linear and logical. No evidence of psychosis. Reviewed daily check in sheet and no reports of suicidal thoughts or intent. Client Response/Progress/Benefit: [] Pt spoke when prompted. This was pt's first day in IOP. Shared with the group that she was recently admitted to [facility] for depression and suicidal ideations. Discussed recent of her co-worker which has triggered mental health decompensation. Tearful at times Group was supportive and welcomed her to IOP. No progress noted. Will continue in [facility] to maintains safety, prevent decompensation, and increase health coping. Narrative Note: []
--- NOTE | 2019-07-13 10:10 | BH.SGPN.GN ---
Behaviors/Verbalizations/Mental Status: []Client alert and oriented, casual dress and good hygiene. Eye contact fair. Motor activity restless. Speech within normal limits. Affect congruent, mood anxious. Thoughts linear, logical, no signs of hallucinations or delusions. Client Response/Progress/Benefit: [] Client was an active participant in group discussion and activity. Attentive during psychoeducation and commenting on the quote. Client reported toxic people can guilt you out of change because could lead to boundary setting that the other person won?t like. Worked with the group to identify benefits to making changes in our lives which included: increasing resilience, setting and accomplishing goals, and seeing setbacks as a learning tool. Group then identified barriers to change or what keeps us from making changes which included: uncomfortable emotions, low motivation, lack of support, closed mindedness, high expectations, and stubbornness. Client participated along with group in activity where they identified and discussed the emotions related to change. Client was attentive during psychoeducation on the change process. Benefited from increased awareness and understating of emotions, benefits, and barriers related to change. Will continue IOP tx to prevent decompensation, stabilize moods and challenge distorted thoughts. Narrative Note: []
--- NOTE | 2019-07-13 11:11 | BH.SGPN.GN ---
Behaviors/Verbalizations/Mental Status: []Client alert and oriented, neatly dressed and groomed. Eye contact good. Motor activity restless. Speech within normal limits. Affect constricted, mood anxious. Thoughts linear, logical, no signs of hallucinations or delusions. Client Response/Progress/Benefit: []Client was an active participant AEB client providing input during discussion and engaging in group activity. Client participated in the activity and processed emotions and barriers associated with making change. Client reported making change can be difficult, but it reaching out to supports can make it easier. Client appeared to connect with discussion on weighing the pros and cons associated with change and benefited from learning to do so through use of decisional balance sheet. Identified she is currently in the action stage of change as client reports belief she is trying to reach out to her supports more. Client able to identify the pros of vocalizing when she needs help which included; realizing how big of a support system she has, less stress, feeling loved, and more resources. Client?s first day of IOP. Recommended continued IOP tx to prevent decompensation and increase healthy coping skills. Narrative Note: []
--- NOTE | 2019-07-16 09:49 | BH.NA_ITS ---
Physical Data - Vital Signs Temperature: 97.6 F Pulse Rate: 70 Respiratory Rate: 20 Blood Pressure: 122/80 - Height/Weight Height: 1.7 m Weight:: 156.489 kg Weight in Pounds: 345.0 lbs Current Medication Compliance - Medication Compliance Do you take your medication as prescribed?: Yes Nutritional History - Appetite Nutritional Instructions:: If client shows signs of a swallowing problem, weight change of 10 pounds or more in the last month, or is on a diabetic diet, the physician will review and request a dietitian consult, as appropriate. All unintentional weight loss will be referred to the physician for decision on need for dietitian consult. Describe your appetite:: Good Have you noticed a change in your eating habits lately?: Yes - client states she has gained about 30lbs in the last couple of months Functional Assessment - Sleep Pattern Describe any problems with sleeping: Client states her sleep has improved greatly since her hospitalization at [facility]. Client states she sleeps 5-9 hours per night. - Activities Comments:: client appears somewhat anxious during assessment, bouncing feet on floor Sensory/Communication Assess - Communication Problems Do you have difficulty understanding what people are saying?: No What is your primary language?: [place] Medical Problems/History - Cardiac Conditions Cardiovascular: Other (See comments) Comments:: Ruel Parkinson White syndrome with ablation x2 - Metabolic Conditions Comments:: Polycystic Ovary Syndrome - Pain Assessment Do you have acute or chronic pain?: No Surgical History - Surgical History Have you had any surgeries? If so, list type and date:: Yes - cardiac ablation for Ruel Parkinson White in March 2017 and September 2017 Substance Abuse - Substance Abuse Please describe substance abuse in the last 30 days:: Client states she drinks alcohol maybe 2 times per year max. Client states she has been using marijuana 1-2 times per week for the last 3 years. Client denies other drug use. Mental Status Summary - Mental Status Significant Findings/Observations on Appearance and Mood:: Client alert and oriented x 4. Client casually groomed. Client cooperative with assessment, makes good eye contact. Client appears somewhat anxious during assessment, bouncing legs during conversation. Client's voice rate and volume normal, speech coherent. Client appears moderately depressed, mildly anxious with somewhat of flat affect. Client with normal processing and logical associations. Client with good attention during assessment. Denies delusions and hallucinations. Client denies SI at this time. Suicide Assessment - Suicidal Ideation Are you currently or have you been suicidal in the past?: Yes Suicidal Intentional Rating Scale (SIRS): Suicidal thoughts (past) Physician Notification: If Active suicidal thoughts/Will not contract for safety is checked, contact physician and document in the Physician Notification section below. Past Psychiatric History - MH Treatment Hx Past Psychiatric Medications:: Celexa Age of first mental health symptoms: Client states she was diagnosed with depression and anxiety when she was 12 years old. Describe (age, circumstance, etc) any past hospitalizations: Client was recently hospitalized at [facility] after coming to emergency room 07/05/19 with suicidal ideations with plan to drink antifreeze. Client was discharged from [facility] on 07/11/19. Client has past suicide attempt by cutting. Current providers for mental health treatment (counselor, psychiatrist, mental health case manager, etc.): Client states for the last 8-10 months she has had counselor, Brooklynn, at [facility]. She started counseling after having nightmares. Fall Risk Assessment - Age Age: Less than 60 - Mental Status Mental Status: Willing & able to ask for assistance when needed - Physical Status Physical Status: No problems - Impairments Impairments: None - Elimination Elimination: Continent AND independent - Gait or Balance Gait or Balance: Walks independently - Hx of Falls History of falls in the past 6 months: No known history - Medications/Substances Psychotropics:: Antidepressants Medications/substances used within the past 24 hours or ordered to administer: 1-2 of the medications/substances listed above - Total Score Total Points:: 1 RN Summary of Impressions - Impressions Recommendations: Include psychiatric and medical issues, treatment planning recommendations, and discharge planning needs. Impressions: Psychiatric Issues: major depressive disorder recurrent severe without psychotic features, anxiety disorder not otherwise specified, strong cluster B traits - Level of Care How do the client's current symptoms and functional deficits support need for this level of care?: Client states for about the past month her symptoms of depression have worsened. Client states that when a friend at work committed suicide recently, that is what put me over the edge and got her to come to the emergency room 07/05/19 with a suicidal plan. Client states she feels sad, lost, hopeless, lose of desire to do ADL's, has some nightmares. Client states she does not currently have SI, but just desires to sleep all the time and disassociate. Client also states besides having a friend that recently committed suicide, other stressors include financial burdens and family. Client does state she has some supportive friends. IOP will promote gains and prevent further decompensation while providing social support and skills training, as well as improve depression management.
--- NOTE | 2019-07-16 10:12 | BH.SGPN.GN ---
Behaviors/Verbalizations/Mental Status: []Client alert and oriented, casually dressed and groomed. Eye contact good. Motor activity appropriate. Speech within normal limits. Affect constricted, mood depressed and anxious. Thoughts linear, logical, no signs of hallucinations or delusions. Client Response/Progress/Benefit: []Client receptive to session, provided input and actively listening throughout discussion on stress. Able to brainstorm with the group the positive and negative aspects of stress on physical and mental health. Client stated sometimes people ignore stressors which only increases stress over time. Client participated in identifying current stressors impacting mental health. Client?s current stressors included; grief, finances, and [place]. Client noted that her most significant stressor currently is grieving the loss of her co-worker and friend. Client reports belief that her stress jar is full. Client stated when her stress is too high, she stays in bed and depending on the type of stress, she can respond in unhealthy ways. Appeared to benefit from gaining awareness of own current stressors and learning about the impact stress has on overall wellbeing. Recommend continued IOP tx to prevent decompensation of depressive symptoms and to increase healthy coping skills. Narrative Note: []
[2019-07-16 10:14] VITALS: BP 122/80; PULSE 70; RESP 20; TEMP 36.4
--- NOTE | 2019-07-16 11:15 | BH.SGPN.GN ---
Behaviors/Verbalizations/Mental Status: []Client alert and oriented, casually dressed and groomed. Eye contact good. Motor activity restless. Speech within normal limits. Affect constricted, mood depressed. Thoughts linear, logical, no signs of hallucinations or delusions. Client Response/Progress/Benefit: []Pt engaged in session as evidenced by pt listening attentively to others, giving ideas during activity, and providing input throughout session. Pt worked with the group to complete the challenge activity. Pt connected with others that she felt slightly anxious during activity, but was able to use breathing skills to manage emotions. Pt actively listening during discussion about the 4 A's of managing stress. Identified she will focus on adapting how currently manages problems to strategies and skills that help her move towards progress instead of causing more stress. Pt seemed to benefit from increased awareness of the impact of stress on mental health and increasing repertoire of stress management strategies. Pt to continue in IOP to prevent decompensation, increase healthy coping skills, and challenge distorted thoughts. Narrative Note: []
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
--- NOTE | 2019-07-16 13:54 | BH.DR.ITP ---
Initial Treatment Plan - Patient Information Visit Information: ADMISSION DATE: EXPECTED LOS: 4-6 weeks - Problems/Symptoms Problem #1:: Depression Symptom:: Sadness, anhedonia, worthlessness Problem #2:: Anxiety Symptom:: Rumination, panic attacks
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
--- NOTE | 2019-07-16 15:22 | BH.MTP_ITS ---
Master Treatment Plan - Patient Information Program Physician:: Dr. Abbie Espinoza Primary Therapist:: Ella Matute - Psychiatric Diagnoses Psychiatric Diagnoses:: Major depressive disorder recurrent, severe, without psychosis F33.2. Anxiety disorder, NOS.; Strong cluster B traits Diagnosis Code(s):: F 33.2 - Estimated LOS Estimated LOS (in weeks):: 6 Problem/Goal #1 - Problem/Goal #1 Stated Goal:: Client will decrease depressive symptoms, isolation, and suicidal ideations. Description of Barriers: Pt. reports long-history of negative self-talk and poor self-esteem that pt reports belief started in childhood. Pt. recently lost a co- worker to suicide and pt has lost other friends in the past due to suicide. Pt. reports financial stress due to not being able to work. Pt. is able to identify healthy coping skills, but reports difficulty following through with them at times. Pt has a history of impulsive behaviors and cutting. Functional Impact: Pt is a 28-year-old single female with a history of depression and anxiety who was admitted to [facility] for worsening symptoms from July 06 to July 11, 2019. Pt reported since her discharge from the hospital on July 11 her symptoms have improved, and her mood is somewhat better. However, pt reports she continues to feel depressed, worthless, and hopeless. At the time of admission pt had suicidal ideation with a plan to drink antifreeze. Pt. denies any active suicidal ideations, plan, or intent since discharge. Pt feels that this is always been a bad time of year for her and the primary trigger to this psych admit was that a coworker by suicide on July 03, 2019. Pt reported that the coworker?s suicide has triggered grief and memories of her cousin who committed suicide and a close friend who completed suicide 4 years ago. Pt has been unable to go to work recently b ecause she feels extremely anxious at work and has had panic attacks. Pt endorses difficulty concentrating, anhedonia, rumination, and negative thinking. Pt?s symptoms are impacting her social and occupational functioning as well as pt?s ability to function at her baseline. Goal Relevant Strengths/Supports: Pt presents as kind, intelligent, and aware of healthy coping skills. Pt lives with a roommate and her roommate's son who client reports she loves very much. Pt reports having several supports and enjoys her job. Pt is connected with outpatient services. - Objectives Objective #1 Stated Objective: Client will learn and utilize 2-3 healthy coping strategies to better manage depressive symptoms as shown by a reduced DSM-5 cross cutting score for depression. Interventions: Through group and individual sessions, therapist will help client identify triggers and warning signs of depression and emotional dysregulation including emotional, physical, and behavioral changes. Therapist will teach client various coping skills to manage her symptoms and give client tangible resources to use to regulate emotions. Therapist will use cognitive restructuring techniques and help client gain awareness of negative thoughts that reinforce depressive cycles. Therapist will provide psychoeducation on depressive cycles and teach client ways to beak out of unhealthy maintenance cycles. Therapist will help client incorporate behavioral activation and assist client in setting SMART goals. Discharge Criteria: Client will have met this goal when she can report learning and using at least 2 coping skills to manage depressive symptoms. Additionally, client will have met this goal when her DSM-5 scores for depression have decreased. Target Date: 08/24/19 Review Date: 08/13/19 Status: open Objective #2 Stated Objective: Client will identify at least 2-3 negative self-talk messages used to reinforce suicidal ideations and negative core beliefs and replace tho ughts with positive, realistic messages. Interventions: Therapist will help client identify distorted, negative beliefs about self and replace with more realistic, affirmative messages. Therapist will use CBT to help client increase insight to the connection between thoughts, emotions, and behaviors. Therapist will encourage client to practice thought challenging. Discharge Criteria: Client will have achieved this goal when can verbalize at least 2 negative self-talk messages and effectively replace those thoughts with affirmative messages. Target Date: 08/24/19 Review Date: 08/13/19 Status: open Problem/Goal #2 - Problem/Goal #2 Stated Goal:: Client will increase emotional regulation and reduce anxiety symptoms. Description of Barriers: Pt. reports long-history of negative self-talk and poor self-esteem that pt reports belief started in childhood. Pt. recently lost a co- worker to suicide and pt has lost other friends in the past due to suicide. Pt. reports financial stress due to not being able to work. Pt. is able to identify healthy coping skills, but reports difficulty following through with them at times. Pt has a history of impulsive behaviors and cutting. Functional Impact: Pt is a 28-year-old single female with a history of depression and anxiety who was admitted to [facility] for worsening symptoms from July 06 to July 11, 2019. Pt reported since her discharge from the hospital on July 11 her symptoms have improved, and her mood is somewhat better. However, pt reports she continues to feel depressed, worthless, and hopeless. At the time of admission pt had suicidal ideation with a plan to drink antifreeze. Pt. denies any active suicidal ideations, plan, or intent since discharge. Pt feels that this is always been a bad time of year for her and the primary trigger to this psych admit was that a coworker by suicide on July 03, 2019. Pt reported that the coworker?s suicide has triggered grief and memories of her cousin who committed suicide and a close friend who completed suicide 4 years ago. Pt has been unable to go to work recently because she feels extremely anxious at work and has had panic attacks. Pt endorses difficulty concentrating, anhedonia, rumination, and negative thinking. Pt?s symptoms are impacting her social and occupational functioning as well as pt?s ability to function at her baseline. Goal Relevant Strengths/Supports: Pt presents as kind, intelligent, and aware of healthy coping skills. Pt lives with a roommate and her roommate's son who client reports she loves very much. Pt reports having several supports and enjoys her job. Pt is connected with outpatient services. - Objectives Objective #1 Stated Objective: Client will identify 2-3 anxiety and emotional dysregulation triggers and 2 calming coping skills to reduce anxiety as shown by decreased DSM-5 cross-cutting score. Interventions: Therapist will help client increase awareness of anxiety and emotional dysregulation triggers and educate client on ways emotions impact overall health. Therapist will teach client various calming strategies to promote emotional regulation and reduction of anxiety. Therapist will assist client in identifying warning signs and triggers. Therapist will discuss the benefit of self-care and self-compassion. Discharge Criteria: Client will have accomplished this goal when can report at least 2 triggers for anxiety and state using 2 calming strategies to manage symptoms. Additionally, client will have accomplished this goal when her DSM-5 cross-cutting scores show a decrease in anxiety. Target Date: 08/24/19 Review Date: 08/13/19 Status: open
--- NOTE | 2019-07-20 09:00 | BH.COMM ---
Communication Note - Communication with Client Communication Note: cancelled IOP due to illness
--- NOTE | 2019-08-03 11:16 | BH.DS ---
Discharge Summary - Demographics Date of Admission:: 07/13/19 Discharge Date: 08/03/19 Presenting Problems at Admission:: Pt is a 28-year-old single female with a history of depression and anxiety who was admitted to [facility] for worsening symptoms from July 06 to July 11, 2019. Pt reported since her discharge from the hospital on July 11 her symptoms have improved, and her mood is somewhat better. However, pt reports she continues to feel depressed, worthless, and hopeless. At the time of admission pt had suicidal ideation with a plan to drink antifreeze. Pt. denies any active suicidal ideations, plan, or intent since discharge. Pt feels that this is always been a bad time of year for her and the primary trigger to this psych admit was that a coworker by suicide on July 03, 2019. Pt reported that the coworker?s suicide has triggered grief and memories of her cousin who committed suicide and a close friend who completed suicide 4 years ago. Pt has been unable to go to work recently because she feels extremely anxious at work and has had panic attacks. Pt endorses difficulty concentrating, anhedonia, rumination, and negative thinking. Pt?s symptoms are impacting her social and occupational functioning as well as pt?s ability to function at her baseline. Discharge Diagnoses:: Major depressive disorder recurrent, severe, without psychosis F33.2. Anxiety disorder, NOS.; Strong cluster B traits Reason for Discharge:: Client voluntarily discharged from [facility] and reported she no longer wishes to participate in [facility] level of care. - Treatment Progress During Treatment & Response: No progress due to client's lack of attendance. Client attended [facility] approximately twice and only met once with this individual therapist. Due to limited attendance, client was unable to work on treatment goals or make progress. Issues Still to be Addressed:: Client unable to accomplish treatment goals due to early discharge. Client can benefit from increasing knowledge of healthy coping skills, increasing consistent application of healthy coping skills, and practicing self-care. Client can benefit from ongoing counseling to prevent decompensation of symptoms. Client can benefit from challenging negative thoughts that reinforce anxiety, depression, and low self-esteem. Lastly, client can benefit from improving her emotional regulation skills. Discharge Recommendations/Instructions:: Pt. is recommended to continue outpatient therapy at [facility]. Pt was given resources for grief counseling and PALs when pt met with this therapist. Discharge Handout: Complete Discharge Handout with client on aftercare options and continuity of care.
== END 2019-07-24 23:59 ==
LOC: BHIOP 09:00
PROVIDERS: Family Provider Family Medicine; PCP Family Medicine; Referring Provider Psychiatry & Neurology Psychiatry; Visit Provider Psychiatry & Neurology Psychiatry
DX: F33.2 Major depressive disorder, recurrent severe without psychotic features (principal); F41.9 Anxiety disorder, unspecified; E66.9 Obesity, unspecified
CPT/HCPCS: H0035; 90832; 90853

== ENCOUNTER → 2020-04-16 | Outpatient (CLI) | payer BC, SELFPAY | END | disposition home or self-care (01) | LOC: LABSPEC 14:20 | PROVIDERS: PCP Family Medicine; Visit Provider Obstetrics & Gynecology | DX: Z12.4 Encounter for screening for malignant neoplasm of cervix (principal) ==

== ENCOUNTER → 2021-02-09 | Outpatient (CLI) | payer BC, SELFPAY | END | disposition home or self-care (01) | PROVIDERS: PCP Family Medicine; Visit Provider Obstetrics & Gynecology | DX: N76.0 Acute vaginitis (principal); R30.0 Dysuria | CPT/HCPCS: 87077; 87086; 87088 ==